=== PATIENT | male | born 1995 | race Caucasian/White ===

== ENCOUNTER 2020-02-23 11:17 | Emergency (ER) | payer OTHER ==
[~2020-02-23] VITALS: Ht 177.8 cm; Wt 102.1 kg
[2020-02-23] MEDS ORDERED: ABILIFY10 MG PO (11:35)
[2020-02-23] MEDS ORDERED: ADDERALL 20 MG20 MG PO (11:36)
[2020-02-23] MEDS ORDERED: SERTRALINE HCL100 MG PO (11:36)
[2020-02-23 12:29] LABS: INFLUENZA A ANTIGEN Negative (Negative); INFLUENZA B ANTIGEN Negative (Negative)
[2020-02-23] MEDS ORDERED: VENTOLIN HFA 1818 GM INH (12:55)
[2020-02-23 13:14] VITALS: BP 140/86
== END 2020-02-23 13:17 | disposition home or self-care (01) ==
LOC: M.ERS 11:17
PROVIDERS: Nurse Practitioner Family
DX: J06.9 Acute upper respiratory infection, unspecified (principal); F31.9 Bipolar disorder, unspecified; Z90.49 Acquired absence of other specified parts of digestive tract